=== PATIENT | female | born 1945 | race Caucasian/White ===

== ENCOUNTER 2018-03-06 16:50 | Emergency (ER) | payer OTHER, SELFPAY ==
[2018-03-06 17:02] VITALS: BP 111/87; PULSE 96; RESP 28; TEMP 36.9; O2SAT 95
[2018-03-06] MEDS: Albuterol/Ipratropium 3 ML UPD VIAL (17:02)
--- NOTE | 2018-03-06 17:08 | DI.RAD_ITS ---
SYMPTOMS/DIAGNOSIS: COUGH, SHORTNESS OF BREATH, WHEEZE CHEST X-RAY: Comparison is 05/01/15. Comparison x-ray of the lumbar spine is 06/18/17. The heart size and pulmonary vasculature are within normal limits. The lungs are clear and well expanded. No effusions or pneumothoraces are identified. The lucencies seen under the left hemidiaphragm as reported by the [facility] report are unchanged compared to the x-ray of the lumbar spine from 06/18/17 and likely reflect the change in densities of the soft tissues in the left upper quadrant. Free air is considered much less likely. IMPRESSION: No acute pulmonary process.
[2018-03-06] MEDS: methylPREDNISolone SUCC 125 MG VIAL IVP (17:20)
[2018-03-06] MEDS: Albuterol/Ipratropium 3 ML UPD VIAL 6 ML UPD (17:20)
[2018-03-06 17:33] VITALS: BP 95/62; PULSE 83; RESP 18; TEMP 36.7; O2SAT 99
[2018-03-06 17:40] LABS: Abs Immature Grans 0.01 k/cumm (0.0-0.09); Absolute Basophil Count 0.04 k/cumm (0.0-0.2); Absolute Eosinophil Count 0.87 k/cumm (0.0-0.7); Absolute Lymphocyte Count 2.89 k/cumm (1.2-3.4); Absolute Neutrophil Count 3.55 k/cumm (1.2-6.7); Basophils % 0.5; Eosinophils % 11.1; HGB 14.3 g/dL (12.0-15.5); Immature Grans % 0.1; Lymphocytes % 36.8; Mean Corp. HGB Concentration 34.9 g/dL (32.0-36.0); Mean Corpuscular Hemoglobin 30.4 pg (27.0-33.0); Mean Corpuscular Volume 87.2 fL (80-95); Mean Platelet Volume 9.2 fL (8.0-11.0); Monocytes % 6.4; Neutrophils % 45.1; Platelet Count 280 x1000/uL (130-400); RBC Distribution Width 13.7 % (11.7-14.6); White Blood Cell Count 7.86 k/cumm (4.4-10.8)
[2018-03-06 17:52] LABS: HCO3 (Venous) 27 mmol/L (22-28); O2 Sat (Venous) 78 % (70-80); TCO2 (Venous) 24 mmol/L (22-29); pCO2 (Venous) 52 mm/Hg (34-47); pH (Venous) 7.33 (7.32-7.43); pO2 (Venous) 46 mm/Hg (28-44)
[2018-03-06 18:24] LABS: ALT 62 U/L (12-78); AST 32 U/L (15-37); Albumin 4.1 g/dL (3.4-5.0); Alkaline Phosphatase 60 U/L (46-116); BUN 7 mg/dL (7-18); Bilirubin, Total 0.3 mg/dL (0.2-1.0); CREATININE 0.78 mg/dL (0.55-1.02); Calcium 9.7 mg/dL (8.5-10.1); Chloride 101 mmol/L (98-107); Glucose 102 mg/dL (70-100); Potassium 3.9 mmol/L (3.5-5.1); Sodium 140 mmol/L (136-145); Total Protein 7.1 g/dL (6.4-8.2); Troponin I < 0.02 ng/mL (0.00-0.06)
--- NOTE | 2018-03-06 18:55 | DI.[facility]AD_ITS ---
EXAM: XR Chest, 2 Views EXAM DATE/TIME: 03/06/2018 5:10 PM CLINICAL HISTORY: 73 years old, female; Signs and symptoms; Cough and shortness of breath and wheezing; Patient HX: Per PT: Symptoms for 1 week TECHNIQUE: XR of the chest, 2 views. COMPARISON: CR PORTABLE CHEST ONE VIEW 05/01/2015 11:11 PM FINDINGS: Lungs: Mild elevation of the right hemidiaphragm. No consolidation. Portions of the pulmonary parenchyma are obscured by overlying medical equipment. Pleural space: Unremarkable. No pleural effusion. No pneumothorax. Heart/Mediastinum: Unremarkable. No cardiomegaly. Bones/joints: Skeletal degenerative changes. Other: Surgical clips are noted in the right upper quadrant of the abdomen. There are indeterminate lucencies under the lateral aspect of the left hemidiaphragm for which free air is not excluded. Correlation is recommended. If warranted, cross-sectional imaging could be obtained. IMPRESSION: 1. No focal consolidation or pneumothorax. 2. Indeterminate lucencies under the lateral aspect of the left hemidiaphragm which free air is not excluded. Clinical correlation recommended. If indicated, CT scan could be considered. Dictated and Authenticated by: Sammi Adams MD. Ordering:OLIVIA SEXTON MD
--- NOTE | 2018-03-06 19:13 | W.ED.GENAD ---
Discharge Plan Disposition Patient Disposition: HOME Condition: Good Discharge Details Chief Complaint: SOB Clinical Impression: COPD (chronic obstructive pulmonary disease) Primary Care Provider: Laureen Kelly ED Provider: Dionisio Antonio Home Meds and New Rx's Prescriptions: New prednisone 50 MG tablet 50 mg PO DAILY Qty: 5 RF: 0 No Action montelukast 10 MG tablet 10 mg PO DAILY RF: 0 albuterol sulfate 8.5 GM HFA aerosol inhaler 2 puff Inhalation Q4H PRN RF: 0 budesonide-formoterol [Symbicort] 10.2 GM HFA aerosol inhaler 2 puff Inhalation BID RF: 0 ascorbic acid (vitamin C) [Vitamin C] 500 MG tablet 500 mg PO DAILY RF: 0 cyanocobalamin (vitamin B-12) [Vitamin B-12] 500 MCG tablet extended release 500 mcg PO DAILY RF: 0 omega-3 fatty acids-fish oil [One-Per-Day [place]-3] 1 EACH capsule,delayed release(DR/EC) 1 ea PO DAILY RF: 0 docusate sodium [Colace] 100 MG capsule 100 mg PO PRN PRNRF: 0 aspirin 81 MG tablet,chewable 81 mg PO DAILY RF: 0 multivitamin 1 EACH capsule 1 ea PO DAILY RF: 0 vitamin E 400 UNIT capsule 400 unit PO DAILY RF: 0 loratadine 10 MG tablet 10 mg PO DAILY PRN PRNRF: 0 alum-mag hydroxide-simeth [Maalox Maximum Strength] 355 ML suspension 30 ml PO PRN PRNRF: 0 calcium carbonate-vitamin D3 1 EACH tablet 1 ea PO DAILY RF: 0 methylprednisolone 4 MG tablets,dose pack 4 mg PO DIRECTED Qty: 1 RF: 0 albuterol sulfate 2.5 MG/3 ML solution for nebulization 2.5 mg Inhalation Q4H PRN PRNQty: 30 RF: 0 Discharge Instructions Instructions: COPD (Chronic Obstructive Pulmonary Disease) (ED) Additional Instructions: Please take the steroids as directed. Please take your inhaler every 4-6 hours for the next 2-3 days. If you notice any worsening of your symptoms, or any new symptoms such as vomiting, diarrhea, fever, chills, shortness of breath, chest pain, numbness, weakness, or fainting , please return immediately to the emergency department for reevaluation. Please follow up with your primary care provider as soon as possible for reassessment and reevaluation. As always, it was a pleasure participating in your medical care today. Referrals: Laureen Kelly [Primary Care Provider] - Medical Decision Making This is a very pleasant 73-year-old female with a past medical history of reactive airway disease, who smokes, who presents today for shortness of breath. Patient states that over the last week she has had a mild cough, and wheeze, or cough does have productive yellow sputum. She has been taking her breathing treatments at home which have led to notable improvement, however her symptoms have gradually been worsening. She has an appointment tomorrow with her primary care provider, but while at work she states that she was having a much harder time breathing with wheeze, and did not have any of her inhalers on hand. She came in for further evaluation. Physical exam demonstrates moderate wheezes throughout, no evidence of hypoxemia or significant respiratory distress although the patient does have mild difficulty getting more than 4 or 5 word sentences out. Though she showed no hypoxemia, she was given 3 breathing treatments, steroids. EKG showed no acute changes, chest x-ray demonstrated no acute process. There was concern on chest x-ray for indeterminate lucencies under the lateral aspect of the left hemidiaphragm which free air is not excluded, however clinical correlation was recommended. Upon my own clinical correlation she demonstrates no signs of this, with no peritoneal signs, no tenderness, no recent surgeries or procedures to suggest a perforation. I do feel that this is an over call and clinically inconsistent with the patient's current clinical picture. Laboratory workup, including VBG and troponin were relatively benign, no evidence of significant abnormality. After the patient's breathing treatments I did reassess her her wheezes have improved, she is feeling significantly better and is asking to go back to work. I feel that her symptoms are clinically correlated with a COPD exacerbation. Patient will be started on steroids, and encouraged to continue her breathing treatments at home. We discussed red flags which to return as well as the importance of close follow-up with her primary care provider tomorrow morning. I have extensively reviewed the treatment plan and discharge instructions with the patient. I have addressed all patient concerns at this time. The patient was made aware of what symptoms to monitor for that would warrant a return to the emergency department. Discussed the plan with the patient, they demonstrate verbal understanding and agreement with our assessment and plan at this time. EKG 17: 13 Rate 75, intervals normal, sinus rhythm, nonspecific less than [address] depression in V3 and V4 with no reciprocal ST elevation, no Q waves, review of previous EKG from 05/01/15 demonstrates similar findings IMPRESSION: 1. No focal consolidation or pneumothorax. 2. Indeterminate lucencies under the lateral aspect of the left hemidiaphragm which free air is not excluded. Clinical correlation recommended. If indicated, CT scan could be considered. Dictated and Authenticated by: Sammi Adams MD. HPI General Date/Time Provider Initiated Documentation: 03/06/18 17:07. Related Data Home Medications Medication Instructions Recorded Confirmed ascorbic acid (vitamin C) [Vitamin 500 mg PO DAILY 09/17/12 05/01/15 C] cyanocobalamin (vitamin B-12) 500 mcg PO DAILY 09/17/12 05/01/15 [Vitamin B-12] omega-3 fatty acids-fish oil 1 ea PO DAILY 09/17/12 05/01/15 [One-Per-Day [place]-3] alum-mag hydroxide-simeth [Maalox 30 ml PO PRN PRN 01/10/13 05/01/15 Maximum Strength] aspirin 81 mg PO DAILY 01/10/13 05/01/15 calcium carbonate-vitamin D3 1 ea PO DAILY 01/10/13 05/01/15 docusate sodium [Colace] 100 mg PO PRN PRN 01/10/13 05/01/15 loratadine 10 mg PO DAILY PRN PRN 01/10/13 05/01/15 multivitamin 1 ea PO DAILY 01/10/13 05/01/15 vitamin E 400 unit PO DAILY 01/10/13 05/01/15 albuterol sulfate 2 puff INHALATION Q4H PRN inhaler 04/04/13 05/01/15 budesonide-formoterol [Symbicort] 2 puff INHALATION BID inhaler 04/04/13 05/01/15 montelukast 10 mg PO DAILY tab-cap 04/04/13 05/01/15 albuterol sulfate 2.5 mg INHALATION Q4H PRN PRN #30 05/02/15 methylprednisolone 4 mg PO DIRECTED #1 packet 05/02/15 prednisone 50 mg PO DAILY #5 tab 03/06/18 Previous Rx's Medication Instructions Recorded albuterol sulfate 2.5 mg INHALATION Q4H PRN PRN #30 05/02/15 methylprednisolone 4 mg PO DIRECTED #1 packet 05/02/15 prednisone 50 mg PO DAILY #5 tab 03/06/18 Allergies Allergy/AdvReac Type Severity Reaction Status Date / Time egg Allergy Unknown Unverified 11/24/16 22:34 erythromycin base Allergy unknown Unverified 11/24/16 22:34 [Erythromycin Base] Sulfa (Sulfonamide Allergy unknown Unverified 11/24/16 22:34 Antibiotics) TREES, GRASS, ANIMALS Allergy Unknown COUGH, Uncoded 11/24/16 22:34 ASTHMA SYMPTOMS General Stated Complaint: SOB MYA: 3 PFSH Family History Mother No problems noted. Father Heart disease Sister No problems noted. Brother Heart disease Brother Heart disease Brother No problems noted. Medical History Asthma Carpal tunnel syndrome Cataract DENTURES Hiatal hernia Polyp of colon Social History Smoking/Tobacco Use Status: Former Tobacco Use Surgical History Cholecystectomy (02/11/09) Colonoscopy - IV Sedation (02/17/08) EGD - IV Sedation (12/17/08) Extraction of cataract Open Carpal Tunnel release Course Vital Signs Temperature 36.9 C 03/06/18 17:02 Pulse 96 H 03/06/18 17:02 Respiratory Rate 28 H 03/06/18 17:02 Blood Pressure 111/87 03/06/18 17:02 Pulse Oximetry 95 03/06/18 17:02 Temperature 36.7 C 03/06/18 17:33 Temperature Source Temporal Artery Scan 03/06/18 17:33 Pulse 83 03/06/18 17:33 Respiratory Rate 18 03/06/18 17:33 Respiratory Effort 03/06/18 17:07 Respiratory Depth Shallow 03/06/18 17:07 Respiratory Pattern Tachypnea 03/06/18 17:07 Blood Pressure 95/62 L 03/06/18 17:33 Blood Pressure Position Supine 03/06/18 17:02 Pulse Oximetry 99 03/06/18 17:33 Oxygen Delivery Method Room Air 03/06/18 17:33 Oxygen Flow Rate 0 03/06/18 17:33 Lab/Test Results Lab/Test Results: Laboratory Tests Range/Units 03/06/18 03/06/18 03/06/18 17:32 17:32 17:32 WBC (4.4-10.8) k/cumm 7.86 RBC (4.00-5.20) m/cumm 4.70 Hgb (12.0-15.5) g/dL 14.3 Hct (36.0-46.0) % 41.0 MCV (80-95) fL 87.2 MCH (27.0-33.0) pg 30.4 MCHC (32.0-36.0) g/dL 34.9 RDW (11.7-14.6) % 13.7 Plt Count (130-400) x1000/uL 280 MPV (8.0-11.0) fL 9.2 Immature Gran % 0.1 Neutrophils % 45.1 Lymphocytes % 36.8 Monocytes % 6.4 Eosinophils % 11.1 Basophils % 0.5 Absolute Neutrophils (1.2-6.7) k/cumm 3.55 Absolute Lymphocytes (1.2-3.4) k/cumm 2.89 Absolute Monocytes (0.11-0.7) k/cumm 0.50 Absolute Eosinophils (0.0-0.7) k/cumm 0.87 H Absolute Basophils (0.0-0.2) k/cumm 0.04 VBG pH (7.32-7.43) 7.33 VBG pCO2 (34-47) mm/Hg 52 H VBG pO2 (28-44) mm/Hg 46 H VBG HCO3 (22-28) mmol/L 27 VBG Total CO2 (22-29) mmol/L 24 VBG O2 Saturation (70-80) % 78 VBG Base Excess (-3-3) mmol/L 1.0 Sodium (136-145) mmol/L 140 Potassium (3.5-5.1) mmol/L 3.9 Chloride (98-107) mmol/L 101 Carbon Dioxide (21.0-32.0) mmol/L 28.0 Anion Gap (3-11) mmol/L 11.0 BUN (7-18) mg/dL 7 Creatinine (0.55-1.02) mg/dL 0.78 Estimated GFR/1.73 m2 (mL/min/1.73m2) >= 60.00 Glucose (70-100) mg/dL 102 H Calcium (8.5-10.1) mg/dL 9.7 Total Bilirubin (0.2-1.0) mg/dL 0.3 AST (15-37) U/L 32 ALT (12-78) U/L 62 Alkaline Phosphatase (46-116) U/L 60 Troponin I (0.00-0.06) ng/mL < 0.02 Total Protein (6.4-8.2) g/dL 7.1 Albumin (3.4-5.0) g/dL 4.1
[2018-03-06 19:33] VITALS: BP 110/60; PULSE 80; RESP 18; TEMP 36.7; O2SAT 99
== END 2018-03-06 19:40 | disposition home or self-care (01) ==
PROVIDERS: Emergency Provider Student in an Organized Health Care Education/Training Program; PCP Nurse Practitioner
DX: J44.9 Chronic obstructive pulmonary disease, unspecified (principal); F17.210 Nicotine dependence, cigarettes, uncomplicated
CPT/HCPCS: 36415; 80053; 82805; 93005; 94640; 96374; 99285; 71046; 84484; 85025; 93010; J2930; J7620

== ENCOUNTER 2018-03-23 02:04 | Outpatient (CLI) | payer OTHER, SELFPAY ==
[2018-03-23] MEDS: Inhaler, Assist Device 1 EACH MC (11:03)
[2018-03-23] MEDS: Albuterol HFA 18 GM 200 PUFF INH IH (11:03)
--- NOTE | 2018-03-28 14:38 | PFT_ITS ---
PULMONARY FUNCTION TEST REPORT DATE OF SERVICE: March 23, 2018 REQUESTING PROVIDER: Laureen Kelly N.P. Spirometry shows mild obstructive airways disease with significant bronchodilator response. Lung volumes show no evidence of restriction. Diffusion capacity normal. Airways resistance elevated. IMPRESSION: Mild obstructive airways disease with significant bronchodilator response. This is associated with elevated airways resistance. Clinical correlation recommended. When this study was compared to previous one from , the patient has a total of 520 cc's decline in FVC and 400 cc's decline in FEV1. VJ/dml D/
== END 2018-03-23 02:24 ==
PROVIDERS: PCP Nurse Practitioner; Visit Provider Nurse Practitioner
DX: J45.40 Moderate persistent asthma, uncomplicated (principal)
CPT/HCPCS: 94060; 94150; 94726; 94729

== ENCOUNTER 2018-10-05 21:00 | Emergency (ER) | payer OTHER, SELFPAY ==
[2018-10-05] VITALS (23 sets, daily range): BP systolic 118–155; BP diastolic 54–89; PULSE 57–85; RESP 15–34; TEMP 36.8; O2SAT 93–99
--- NOTE | 2018-10-05 21:35 | DI.CT_ITS ---
SYMPTOM/DIAGNOSIS; UPPER ABD PAIN ABDOMEN AND PELVIC CT: The study was carried out according to the usual protocol with an intravenous administration of 100 cc's of Omnipaque 350. The lung bases are unremarkable. A small hiatus hernia is demonstrated. The liver is intact. The patient is status post cholecystectomy. There is no evidence of ductal dilatation. The spleen is normal. The adrenals are normal. The kidneys are intact. There is no evidence of hydronephrosis. Note is made of colonic diverticulosis. There is no evidence of bowel obstruction. The appendix is not visualized, however there is nothing to suggest an acute appendix. The bladder is unremarkable. The reproductive organs as visualized appear unremarkable. There is no evidence of free air or free fluid in the intraperitoneal space. No acute bony abnormality is seen. Note is made of small bilateral fat containing inguinal hernias. There are mild atherosclerotic changes involving the aorta without evidence of an aneurysm. There is no evidence of lymphadenopathy. SUMMARY: No evidence of an acute abdomen. There is a small hiatal hernia and note is made of colonic diverticulosis. Also there are small fat containing inguinal hernias.
--- NOTE | 2018-10-05 21:37 | W.ED.GENAD ---
Discharge Plan Disposition Patient Disposition: HOME Condition: Good Discharge Details Chief Complaint: Abd Prob Clinical Impression: Epigastric pain Primary Care Provider: Laureen Kelly ED Provider: Javier Jasso Meds and New Rx's Prescriptions: New omeprazole 40 mg capsule,delayed release(DR/EC) 40 mg PO DAILY Qty: 30 RF: 0 Continued montelukast 10 MG tablet 10 mg PO DAILY RF: 0 albuterol sulfate 8.5 GM HFA aerosol inhaler 2 puff Inhalation Q4H PRN RF: 0 Symbicort 10.2 GM HFA aerosol inhaler 2 puff Inhalation BID RF: 0 ascorbic acid (vitamin C) [Vitamin C] 500 MG tablet 500 mg PO DAILY RF: 0 One-Per-Day [place]-3 1 EACH capsule,delayed release(DR/EC) 1 ea PO DAILY RF: 0 aspirin 81 MG tablet,chewable 81 mg PO DAILY RF: 0 multivitamin 1 EACH capsule 1 ea PO DAILY RF: 0 vitamin E 400 UNIT capsule 400 unit PO DAILY RF: 0 loratadine 10 MG tablet 10 mg PO DAILY PRN PRNRF: 0 calcium carbonate-vitamin D3 1 EACH tablet 1 ea PO DAILY RF: 0 albuterol sulfate 2.5 MG/3 ML solution for nebulization 2.5 mg Inhalation Q4H PRN PRNQty: 30 RF: 0 Discharge Instructions Instructions: Epigastric Pain (ED) Additional Instructions: Start taking the prescribed omeprazole daily as directed. Avoid nonsteroidal medications, caffeine, alcohol. Follow-up with primary care in the next 1 to 2 weeks for reevaluation. Return to the ED if you develop worsening pain, chest pain, increasing shortness of breath, fever, vomiting. Referrals: Laureen Kelly [Primary Care Provider] - Medical Decision Making Patient presenting with upper abdominal/epigastric pain which is since resolved. Has been bothering her intermittently for 1 week. No chest pain or change in her breathing. No radiation to the back. Vital signs unremarkable. Abdominal exam benign. EKG obtained from triage with no acute changes. Patient looks well and has an unremarkable exam currently but given her age we will go ahead and check abdominal labs and CT of the abdomen pelvis. I do not think this is cardiac in nature given her description of the pain. Patient's white count is normal. Hemoglobin is normal. Chemistries unremarkable. Liver function normal. Lipase normal. CT scan of the abdomen pelvis shows no acute changes or findings. Patient remains asymptomatic. She just recently restarted taking something for acid, not sure what. We will start her on omeprazole and have her follow-up with primary care as she has planned. Return to ED for fever, vomiting, new or worsening pain. Medical Records Medical records reviewed: Yes I reviewed the patient's medical records. Lab Data Lab results reviewed: Yes I reviewed the patient's lab results. ECG Data Attestation: I personally reviewed and interpreted this ECG (s) as follows: Prior ECG tracings: available for review Interpretation: Sinus rhythm at 76. Normal axis and intervals. Nonspecific ST changes which have been present previously on comparison to EKG from 2018. HPI General Mode of arrival: ambulatory. Date/Time Provider Initiated Documentation: 10/05/18 21:24. Limitations to Documentation: no limitations. Information obtained by: patient, RN notes reviewed and old records reviewed. HPI Narrative: Patient presents with epigastric abdominal pain that started while she was working here. She has had this intermittently over the past week. She thought it was her hiatal hernia and has made an appointment to see primary but has not been seen yet. Pain was severe this evening while she was working so she checked in. By the time I saw her the pain had resolved. She has no chest pain or pressure. She has no change in her breathing, history of asthma with cough and wheeze, which she states is unchanged. She has had no nausea, vomiting, diarrhea. She has had no black or bloody stool. Pain does not radiate to the back. She has had no fever. Related Data Home Medications Medication Instructions Recorded Confirmed One-Per-Day [place]-3 1 ea PO DAILY 09/17/12 10/05/18 ascorbic acid (vitamin C) [Vitamin 500 mg PO DAILY 09/17/12 10/05/18 C] aspirin 81 mg PO DAILY 01/10/13 10/05/18 calcium carbonate-vitamin D3 1 ea PO DAILY 01/10/13 10/05/18 loratadine 10 mg PO DAILY PRN PRN 01/10/13 10/05/18 multivitamin 1 ea PO DAILY 01/10/13 10/05/18 vitamin E 400 unit PO DAILY 01/10/13 10/05/18 Symbicort 2 puff INHALATION BID inhaler 04/04/13 10/05/18 albuterol sulfate 2 puff INHALATION Q4H PRN inhaler 04/04/13 10/05/18 montelukast 10 mg PO DAILY tab-cap 04/04/13 10/05/18 albuterol sulfate 2.5 mg INHALATION Q4H PRN PRN #30 05/02/15 10/05/18 omeprazole 40 mg PO DAILY #30 cap 10/05/18 Previous Rx's Medication Instructions Recorded albuterol sulfate 2.5 mg INHALATION Q4H PRN PRN #30 05/02/15 omeprazole 40 mg PO DAILY #30 cap 10/05/18 Allergies Allergy/AdvReac Type Severity Reaction Status Date / Time egg Allergy Unknown Unverified 10/05/18 22:47 erythromycin base Allergy unknown Unverified 10/05/18 22:47 [Erythromycin Base] Sulfa (Sulfonamide Allergy unknown Unverified 10/05/18 22:47 Antibiotics) TREES, GRASS, ANIMALS Allergy Unknown COUGH, Uncoded 10/05/18 22:47 ASTHMA SYMPTOMS General Stated Complaint: Abd Prob MYA: 3 Review of Systems Review of Systems 02/20 Review of Systems completed and is negative except as stated above in HPI (Systems reviewed: Const, Eyes, ENT, Resp, CV, GI, , MSK, Skin, Neuro) PFSH Medical History Asthma Carpal tunnel syndrome Cataract DENTURES Hiatal hernia Polyp of colon Surgical History Cholecystectomy (02/11/09) Colonoscopy - IV Sedation (02/17/08) EGD - IV Sedation (12/17/08) Extraction of cataract Open Carpal Tunnel release Family History Mother No problems noted. Father Heart disease Sister No problems noted. Brother Heart disease Brother Heart disease Brother No problems noted. Social History Smoking/Tobacco Use Status: Former Tobacco Use Alcohol Intake: never Drug use: Never Substance use type: does not use Do you feel safe at home: Yes Do you feel safe in your relationship?: Yes Exam Narrative Exam Narrative: Vitals: Afebrile. Blood pressure a little elevated. Saturations a little low in the mid 90s probably her baseline given her asthma history. Const: WDWN female in NAD. HEENT: NC/AT. Normal facial exam. Eyes: Normal conjunctiva and sclera. Neck: Supple. Trachea midline. Lungs: Normal respiratory effort. Lungs are mostly clear, few wheezes present. Cor: RRR without murmur/gallop. Good radial pulses. GI: Soft. NT/ND. No guarding or rebound. Neuro: A+O x 3. CN grossly in tact. Good strength and no focal deficit. Ext: No C/C/E. No deformity or tenderness. Skin: Warm and dry without rash. Course Vital Signs Temperature 98.2 F 10/05/18 21:09 Pulse 78 10/05/18 21:09 Respiratory Rate 16 10/05/18 21:09 Blood Pressure 155/79 H 10/05/18 21:09 Pulse Oximetry 94 L 10/05/18 21:09 Temperature 98.2 F 10/05/18 21:09 Temperature Source Tympanic 10/05/18 21:09 Pulse 78 10/05/18 21:09 Respiratory Rate 16 10/05/18 21:09 Respiratory Effort Short of Breath 10/05/18 21:19 Blood Pressure 155/79 H 10/05/18 21:09 Blood Pressure Position Sitting 10/05/18 21:09 Pulse Oximetry 94 L 10/05/18 21:09 Oxygen Delivery Method Room Air 10/05/18 21:09 Oxygen Flow Rate 0 10/05/18 21:09 Pain Level 9 10/05/18 21:19
[2018-10-05 21:46] LABS: Abs Immature Grans 0.01 k/cumm (0.0-0.09); Absolute Basophil Count 0.03 k/cumm (0.0-0.2); Absolute Eosinophil Count 0.48 k/cumm (0.0-0.7); Absolute Lymphocyte Count 3.22 k/cumm (1.2-3.4); Absolute Monocyte Count 0.59 k/cumm (0.11-0.7); Absolute Neutrophil Count 3.44 k/cumm (1.2-6.7); Basophils % 0.4; Eosinophils % 6.2; HCT 38.7 % (36.0-46.0); HGB 13.5 g/dL (12.0-15.5); Immature Grans % 0.1; Lymphocytes % 41.4; Mean Corp. HGB Concentration 34.9 g/dL (32.0-36.0); Mean Corpuscular Hemoglobin 30.1 pg (27.0-33.0); Mean Corpuscular Volume 86.2 fL (80-95); Mean Platelet Volume 9.7 fL (8.0-11.0); Monocytes % 7.6; Neutrophils % 44.3; Platelet Count 272 x1000/uL (130-400); RBC 4.49 m/cumm (4.00-5.20); RBC Distribution Width 13.3 % (11.7-14.6); White Blood Cell Count 7.77 k/cumm (4.4-10.8)
[2018-10-05 21:58] LABS: ALT 36 U/L (12-78); AST 17 U/L (15-37); Albumin 3.8 g/dL (3.4-5.0); Alkaline Phosphatase 62 U/L (46-116); Anion Gap 8.9 mmol/L (3-11); BUN 12 mg/dL (7-18); Bilirubin, Total 0.2 mg/dL (0.2-1.0); CO2 27.1 mmol/L (21.0-32.0); Calcium 9.3 mg/dL (8.5-10.1); Chloride 104 mmol/L (98-107); Glucose 105 mg/dL (70-100); Lipase 198 U/L (73-393); Potassium 3.9 mmol/L (3.5-5.1); Sodium 140 mmol/L (136-145); Total Protein 7.1 g/dL (6.4-8.2)
[2018-10-05] MEDS: Lactated Ringers 1,000 ML 125 ML IV (22:00)
[2018-10-05] MEDS: Omnipaque 350 MG/ML 100 ML BTL IJ (22:23)
--- NOTE | 2018-10-05 22:52 | DI.VRAD_ITS ---
EXAM: CT Abdomen and Pelvis With Contrast EXAM DATE/TIME: 10/05/2018 9:37 PM CLINICAL HISTORY: 73 years old, female; Abdominal pain; Localized; Right upper quadrant (ruq); Prior surgery; Surgery date: 6+ months; Surgery type: Gallstones TECHNIQUE: Imaging protocol: Axial computed tomography images of the abdomen and pelvis with intravenous contrast. Coronal and sagittal reformatted images were created and reviewed. Radiation optimization: All CT scans at this facility use at least one of these dose optimization techniques: automated exposure control; mA and/or kV adjustment per patient size (includes targeted exams where dose is matched to clinical indication); or iterative reconstruction. Contrast material: [id number]; Contrast volume: 87 ml; Contrast route: IV; COMPARISON: No relevant prior studies available. FINDINGS: Mediastinum: Small hiatal hernia. ABDOMEN: Liver: No suspicious lesions. Gallbladder and bile ducts: Cholecystectomy. Pancreas: Unremarkable. No ductal dilation. Spleen: No suspicious lesions. Adrenals: Unremarkalbe. No suspicious mass. Kidneys and ureters: Unremarkable. No hydro. No suspicious lesions. Stomach and bowel: Colonic diverticulosis. Appendix: Appendix not visualized. PELVIS: Bladder: Unremarkable as visualized. Reproductive: Unremarkable as visualized. ABDOMEN and PELVIS: Intraperitoneal space: No free air. No significant fluid collection. Bones/joints: No acute fracture. No dislocation. Soft tissues: Small fat-containing inguinal hernias. Vasculature: Unremarkable. No acute findings Lymph nodes: Unremarkable. IMPRESSION: No acute findings. Small hiatal hernia. Colonic diverticulosis. Small fat-containing inguinal hernias. Dictated and Authenticated by: Michael Zhao MD. Ordering:DAYANNA Herrera MD
== END 2018-10-05 23:24 | disposition home or self-care (01) ==
PROVIDERS: Emergency Provider Emergency Medicine; PCP Nurse Practitioner
DX: R10.13 Epigastric pain (principal)
CPT/HCPCS: 36415; 80053; 83690; 93005; 96360; 99285; 74177; 83735; 85025; 93010; 99284; J3490

== ENCOUNTER 2018-11-02 00:13 | Outpatient (CLI) | payer OTHER, SELFPAY ==
--- NOTE | 2018-11-02 15:10 | DI.MAMMO_ITS ---
SYMPTOMS/DIAGNOSIS: SCREENING, Z12.39 MAMMOGRAM: Mammograms were interpreted according to the usual protocol including computer analysis with CAD system, tomosynthesis and C view imaging. The breasts are of moderate density with fairly symmetrical distribution of fibroglandular tissue. No dominant mass or clumped microcalcification is identified in either breast. Current examination is compared with previous examination of April 2012 and there has been no gross interval change in appearance since that time allowing for differences in technique. CONCLUSION: No specific evidence of malignancy at this time. Routine screening examinations are suggested at yearly intervals in this age group according to the ACS/ACR guidelines. Category 1, breast density category B. MQSA ASSESSMENT OF FINDINGS: Negative. Category 1. Patient will receive a letter notifying them of these results. BI-RADS category B. There are scattered areas of fibroglandular density.
== END 2018-11-02 00:33 ==
PROVIDERS: PCP Nurse Practitioner; Visit Provider Nurse Practitioner
DX: Z12.31 Encounter for screening mammogram for malignant neoplasm of breast (principal)
CPT/HCPCS: 77063; 77067

== ENCOUNTER 2018-11-18 23:30 | Emergency (ER) | payer OTHER, SELFPAY ==
[2018-11-18 23:33] VITALS: BP 146/90; PULSE 68; RESP 16; TEMP 36.4; O2SAT 98
[2018-11-18 23:38] VITALS: RESP 16
--- NOTE | 2018-11-18 23:39 | ED.GENADUL_ITS ---
Discharge Plan Disposition Patient Disposition: HOME Condition: Good Discharge Details Chief Complaint: ChemExpose Clinical Impression: Chemical exposure Primary Care Provider: Laureen Kelly ED Provider: Libby Goodwin Home Meds and New Rx's Prescriptions: Continued montelukast 10 MG tablet 10 mg PO DAILY RF: 0 albuterol sulfate 8.5 GM HFA aerosol inhaler 2 puff Inhalation Q4H PRN RF: 0 Symbicort 10.2 GM HFA aerosol inhaler 2 puff Inhalation BID RF: 0 ascorbic acid (vitamin C) [Vitamin C] 500 MG tablet 500 mg PO DAILY RF: 0 One-Per-Day [place]-3 1 EACH capsule,delayed release(DR/EC) 1 ea PO DAILY RF: 0 aspirin 81 MG tablet,chewable 81 mg PO DAILY RF: 0 multivitamin 1 EACH capsule 1 ea PO DAILY RF: 0 vitamin E 400 UNIT capsule 400 unit PO DAILY RF: 0 loratadine 10 MG tablet 10 mg PO DAILY PRN PRNRF: 0 calcium carbonate-vitamin D3 1 EACH tablet 1 ea PO DAILY RF: 0 albuterol sulfate 2.5 MG/3 ML solution for nebulization 2.5 mg Inhalation Q4H PRN PRNQty: 30 RF: 0 omeprazole 40 mg capsule,delayed release(DR/EC) 40 mg PO DAILY Qty: 30 RF: 0 Discharge Instructions Instructions: Chemical Skin Burn (ED) Additional Instructions: Continue to monitor areas for signs of bleeding including redness, breaks in the skin, increased pain, fever/chills. If you develop these or other new/worsening symptoms please seek care urgently once again. Please follow-up with primary care next week if symptoms persist. Please try to wear gloves in the future when handling these types of products. Referrals: Laureen Kelly [Primary Care Provider] - Medical Decision Making Patient is a pleasant 73-year-old [id number] female presenting today with chief complaint of chemical exposure to the left hand. She reports that she was cleaning on medical surgical unit. The room had been falls with hydrogen peroxide and pills were done with a bleach solution. She reports that she went to pear picker the pillows to move them and the pillows are still wet. Immediately noted a burning and needles sensation to the tips of the digits particularly over the third and fourth digits. States that initially, the skin was bleached but this is since resolved. She reports that she washed the, call from her skin immediately after noticing this new sensation. There is no break in the skin. No respiratory component to this. Denies any evidence of burn at this time. Patient reports that she has 0 pain and symptoms have greatly improved. She is given strict return precautions. Advise follow-up with primary care next week if symptoms do not improve. 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 All of her questions and concerns were addressed and she is in agreement this plan HPI General Mode of arrival: ambulatory . Date/Time Provider Initiated Documentation: 11/18/18 23:38 . Limitations to Documentation: no limitations . Information obtained by: patient and RN notes reviewed . History of Present Illness 73 year old F presents to the emergency department with the chief complaint of chemical exposure, described as mild, Quality is described as burning, and is localized to the left and upper extremity (tips of the 3&4 fingers). Patient reports no radiation. Patient started experiencing this minute(s) and it has been now resolved (improving). No relieving factors improve symptom(s), No exacerbating factors reported . Patient notes no other symptoms.; denies shortness of breath. Patient did receive the following treatments prior to arrival, none Related Data Home Medications Medication Instructions Recorded Confirmed One-Per-Day [place]-3 1 ea PO DAILY 09/17/12 11/18/18 ascorbic acid (vitamin C) [Vitamin 500 mg PO DAILY 09/17/12 11/18/18 C] aspirin 81 mg PO DAILY 01/10/13 11/18/18 calcium carbonate-vitamin D3 1 ea PO DAILY 01/10/13 11/18/18 loratadine 10 mg PO DAILY PRN PRN 01/10/13 11/18/18 multivitamin 1 ea PO DAILY 01/10/13 11/18/18 vitamin E 400 unit PO DAILY 01/10/13 11/18/18 Symbicort 2 puff INHALATION BID inhaler 04/04/13 11/18/18 albuterol sulfate 2 puff INHALATION Q4H PRN inhaler 04/04/13 11/18/18 montelukast 10 mg PO DAILY tab-cap 04/04/13 11/18/18 albuterol sulfate 2.5 mg INHALATION Q4H PRN PRN #30 12/24/15 07/12/19 omeprazole 40 mg PO DAILY #30 cap 10/05/18 11/18/18 Previous Rx's Medication Instructions Recorded albuterol sulfate 2.5 mg INHALATION Q4H PRN PRN #30 05/02/15 omeprazole 40 mg PO DAILY #30 cap 10/05/18 Allergies Allergy/AdvReac Type Severity Reaction Status Date / Time egg Allergy Unknown Unverified 11/18/18 23:41 erythromycin base Allergy unknown Unverified 11/18/18 23:41 [Erythromycin Base] Sulfa (Sulfonamide Allergy unknown Unverified 11/18/18 23:41 Antibiotics) TREES, GRASS, ANIMALS Allergy Unknown COUGH, Uncoded 11/18/18 23:41 ASTHMA SYMPTOMS General Stated Complaint: ChemExpose MYA: 4 Review of Systems Constitutional Reports as per HPI, Denies chills and Denies fever(s) Respiratory Denies cough, Denies stridor and Denies wheezing Musculoskeletal Reports as per HPI Integumentary/Breasts Reports as per HPI Neurologic Reports as per HPI, Denies sensory deficit and Denies paresthesias Allergic/Immunologic Denies wheezing PFSH Medical History Asthma Carpal tunnel syndrome Cataract DENTURES Hiatal hernia Polyp of colon Surgical History Cholecystectomy (02/11/09) Colonoscopy - IV Sedation (02/17/08) EGD - IV Sedation (12/17/08) Extraction of cataract Open Carpal Tunnel release Family History Mother No problems noted. Father Heart disease Sister No problems noted. Brother Heart disease Brother Heart disease Brother No problems noted. Social History Smoking/Tobacco Use Status: Former Tobacco Use Alcohol Intake: never Drug use: Never Substance use type: does not use Do you feel safe at home: Yes Do you feel safe in your relationship?: Yes Exam Const General: cooperative, healthy appearing, comfortable, no acute distress and well developed Nutritional Appearance: average body habitus and well nourished Orientation: alert and awake Resp Effort & Inspection: normal respiratory effort, able to speak in complete sentences and no respiratory distress Auscultation: clear to auscultation bilaterally Cardio Rate: regular rate Rhythm: regular rhythm Heart Sounds: S1 normal and S2 normal Skin General skin exam: no rashes or lesions noted Neuro General: alert and awake Cognition: normal cognition Speech: speech normal Gait: normal gait Sensory Exam: no sensory deficits noted Extrem Left upper extremity: normal to inspection, full ROM, normal capillary refill, no joint enlargement and hand Details: normal to inspection, normal capillary refill, neuromotor exam normal, neurosensory exam normal, normal ROM of fingers, no swelling and other (small blisters at tip of digits past area of exposure from guitar 3&4); no swelling, no abrasions, no lacerations and no ecchymosis; no edema Left lower extremity: full ROM Psych Appearance: grossly normal and well kempt Mental Status: mental status grossly normal Speech and Movement: speech and movement normal Course Vital Signs Temperature 36.4 C L 11/18/18 23:33 Pulse 68 11/18/18 23:33 Respiratory Rate 16 11/18/18 23:33 Blood Pressure 146/90 H 11/18/18 23:33 Pulse Oximetry 98 11/18/18 23:33 Temperature 36.4 C L 11/18/18 23:33 Temperature Source Temporal Artery Scan 11/18/18 23:33 Pulse 68 11/18/18 23:33 Respiratory Rate 16 11/18/18 23:33 Respiratory Effort 11/18/18 23:33 Blood Pressure 146/90 H 11/18/18 23:33 Pulse Oximetry 98 11/18/18 23:33 Oxygen Delivery Method Room Air 11/18/18 23:33 Oxygen Flow Rate 0 11/18/18 23:33 Pain Level 0 11/18/18 23:33
== END 2018-11-18 23:58 | disposition home or self-care (01) ==
PROVIDERS: Emergency Provider Physician Assistant; PCP Nurse Practitioner
DX: R20.2 Paresthesia of skin (principal); Z77.098 Contact with and (suspected) exposure to other hazardous, chiefly nonmedicinal, chemicals; Y99.0 Civilian activity done for income or pay
CPT/HCPCS: 99282

== ENCOUNTER 2019-04-10 11:53 | Outpatient (REF) | payer OTHER, SELFPAY ==
[2019-04-10 19:51] LABS: Hemoglobin A1C 5.8 % (4.5-6.2)
[2019-04-10 20:19] LABS: Calculated LDL 130 mg/dL; Cholesterol 212 mg/dL (<200); HDL Cholesterol 65 mg/dL (40-60); Triglyceride 88 mg/dL (<150)
[2019-04-10 20:31] LABS: Vitamin D 25 Total 56.4 ng/ml (30-100)
== END 2019-04-10 12:13 ==
LOC: NCHCN 11:53
PROVIDERS: PCP Nurse Practitioner; Visit Provider Nurse Practitioner
DX: R73.9 Hyperglycemia, unspecified (principal); Z13.220 Encounter for screening for lipoid disorders; Z13.21 Encounter for screening for nutritional disorder
CPT/HCPCS: 80061; 82306; 83036

== ENCOUNTER 2022-09-22 18:55 | Outpatient (REF) | payer MEDICARE, SELFPAY ==
[2022-09-22 19:19] LABS: HGB 13.2 g/dL (11.2-15.7); MCHC 33.8 % (32.0-36.0); MCV 89 fL (80-95); MPV 10.4 fL (8.0-11.0); Platelet Count 255 10^3/uL (130-400); RDW 13.1 % (11.7-14.6); RDW-SD 42.8 fL; WBC 6.23 10^3/uL (4.4-10.8)
[2022-09-22 19:34] LABS: Anion Gap 8.1 mmol/L (3-11); BUN 8 mg/dL (7-18); CO2 28.9 mmol/L (21.0-32.0); CREATININE 0.9 mg/dL (0.55-1.02); Calcium 9.3 mg/dL (8.5-10.1); Calculated LDL 118 mg/dL (<100); Chloride 104 mmol/L (98-107); Cholesterol 207 mg/dL (<200); Estimated GFR 66.26 (mL/min/1.73m2); Glucose 103 mg/dL (74-106); HDL Cholesterol 60 mg/dL (40-60); Potassium 3.9 mmol/L (3.5-5.1); Sodium 141 mmol/L (136-145); Triglyceride 149 mg/dL (<150)
[2022-09-22 20:05] LABS: Hemoglobin A1C 5.5 % (<5.7)
== END 2022-09-22 18:56 | disposition home or self-care (01) ==
LOC: NCHCN 18:55
PROVIDERS: PCP Nurse Practitioner; Visit Provider Nurse Practitioner Family
DX: R73.03 Prediabetes (principal); K21.9 Gastro-esophageal reflux disease without esophagitis; J45.40 Moderate persistent asthma, uncomplicated; J30.2 Other seasonal allergic rhinitis; E78.89 Other lipoprotein metabolism disorders
CPT/HCPCS: 80048; 80061; 85027; 83036

== ENCOUNTER 2023-11-09 09:38 | Outpatient (REF) | payer MEDICARE, SELFPAY ==
[2023-11-09 15:42] LABS: Abs Immature Grans 0.01 10^3/uL (0.0-0.06); Absolute Basophil Count 0.03 10^3/uL (0.0-0.2); Absolute Eosinophil Count 0.13 10^3/uL (0.0-0.7); Absolute Lymphocyte Count 2.12 10^3/uL (1.2-3.4); Absolute Neutrophil Count 4.62 10^3/uL (1.2-6.7); Basophils % 0.4 %; Eosinophils % 1.8 %; HCT 39.7 % (36.0-46.0); HGB 13.4 g/dL (11.2-15.7); Immature Grans % 0.1 %; Lymphocytes % 28.6 %; MCH 29.8 pg (27.0-33.0); MCHC 33.8 % (32.0-36.0); MCV 88 fL (80-95); MPV 10.3 fL (8.0-11.0); Monocytes % 6.7 %; Neutrophils % 62.4 %; Platelet Count 251 10^3/uL (130-400); RDW 13.6 % (11.7-14.6); RDW-SD 44.1 fL; WBC 7.41 10^3/uL (4.4-10.8)
[2023-11-09 15:51] LABS: ALT 41 U/L (14-59); AST 24 U/L (15-37); Albumin 3.9 g/dL (3.4-5.0); Alkaline Phosphatase 68 U/L (46-116); Anion Gap 7.4 mmol/L (3-11); BUN 7 mg/dL (7-18); Bilirubin, Total 0.32 mg/dL (0.2-1.0); CO2 31.6 mmol/L (21.0-32.0); CREATININE 0.7 mg/dL (0.55-1.02); Calcium 9.4 mg/dL (8.5-10.1); Chloride 102 mmol/L (98-107); Estimated GFR 89.02 (mL/min/1.73m2); Glucose 111 mg/dL (74-106); Potassium 4.4 mmol/L (3.5-5.1); Sodium 141 mmol/L (136-145); Total Protein 7.2 g/dL (6.4-8.2)
== END 2023-11-09 09:39 | disposition home or self-care (01) ==
LOC: LBN 09:38
PROVIDERS: Visit Provider Nurse Practitioner Family
DX: R42 Dizziness and giddiness (principal)
CPT/HCPCS: 80053; 85025

== ENCOUNTER 2024-09-19 15:51 | Outpatient (REF) | payer MEDICARE, SELFPAY ==
[2024-09-19 18:15] LABS: Hemoglobin A1C 5.4 % (<5.7)
[2024-09-19 18:22] LABS: ALT 27 U/L (14-59); AST 27 U/L (15-37); Albumin 3.9 g/dL (3.4-5.0); Alkaline Phosphatase 75 U/L (46-116); Anion Gap 5.4 mmol/L (3-11); BUN 9 mg/dL (7-18); Bilirubin, Total 0.3 mg/dL (0.2-1.0); CO2 28.6 mmol/L (21.0-32.0); CREATININE 0.8 mg/dL (0.55-1.02); Calcium 9.5 mg/dL (8.5-10.1); Chloride 103 mmol/L (98-107); Estimated GFR 75.37 (mL/min/1.73m2); Glucose 101 mg/dL (74-106); Potassium 3.9 mmol/L (3.5-5.1); Sodium 137 mmol/L (136-145); Total Protein 7.2 g/dL (6.4-8.2)
== END 2024-09-19 15:52 | disposition home or self-care (01) ==
LOC: NCHCN 15:51
PROVIDERS: Visit Provider Nurse Practitioner Family
DX: Z00.00 Encounter for general adult medical examination without abnormal findings (principal)
CPT/HCPCS: 80053; 83036